=== PATIENT | female | born 1950 | race Caucasian/White ===

== ENCOUNTER 2021-06-23 11:03 | Day surgery (SDC) | payer MEDICARE, BC ==
[~2021-06-23 11:03] MED LIST: Lactated Ringers 1,000 ML IV SCH
[2021-06-23] MEDS ORDERED: Propofol 200 MG/20 ML SDV ONE ×2 (11:32→13:20)
[2021-06-23] MEDS ORDERED: fentaNYL 100 MCG/2 ML SDV ONE (11:32)
== END 2021-06-23 14:40 | disposition home or self-care (01) ==
LOC: VM.SDS 11:03
PROVIDERS: ATTEND Family Medicine
DX: Z12.11 Encounter for screening for malignant neoplasm of colon (principal); K64.9 Unspecified hemorrhoids; K57.30 Diverticulosis of large intestine without perforation or abscess without bleeding; I10 Essential (primary) hypertension; E78.00 Pure hypercholesterolemia, unspecified; Z80.0 Family history of malignant neoplasm of digestive organs; Z86.010 Personal history of colon polyps; Z98.890 Other specified postprocedural states; Z90.49 Acquired absence of other specified parts of digestive tract; Z88.8 Allergy status to other drugs, medicaments and biological substances; Z79.82 Long term (current) use of aspirin; Z79.899 Other long term (current) drug therapy
CPT/HCPCS: 00811; J2704; J3010; J7120